=== PATIENT | male | born 1990 | race Caucasian/White ===

== ENCOUNTER 2016-09-25 09:20 | Day surgery (SDC) | payer OTHER ==
[2016-09-20 09:06] VITALS: BMI 21.7
[~2016-09-25 09:20] MED LIST: LACTATED RINGERS 1,000 ML IV SCH; LIDOCAINE 1% 20 ML VIAL (10MG/ML) FOR IV START INTRADERMA PRN
[2016-09-25 09:49] VITALS: RESP 16; TEMP 98
[2016-09-25] MEDS ORDERED: PROPOFOL 10 MG/ML 20 ML VIAL IV ONE (10:24)
--- NOTE | 2016-09-25 10:45 | P.PCN ---
Date of Procedure: 09/25/16 Procedure(s) Performed: Brief history: Patient is a pleasant 26-year-old white male, scheduled for an elective upper endoscopy as well as colonoscopy as a part of evaluation of abdominal pain, chronic diarrhea for the last [address] of the abdomen and pelvis showed thickening of the terminal ileum suspicious for Crohn's. Procedure performed: Esophagogastroduodenoscopy with biopsy Colonoscopy with biopsy Preoperative diagnosis: Abdominal pain, chronic diarrhea Abnormal CAT scan showing thickening of the terminal ileum, rule out Crohn's Anesthesia: [facility] [place] Procedure: After informed consent was obtained from the patient was brought into the endoscopy unit and IV conscious sedation was administered by anesthesia under continuous monitoring. Initially upper endoscopy was done. The Olympus GF 160 video endoscope was inserted inserted into the mouth and esophagus intubated without any difficulty and was gradually advanced into the stomach and duodenum and carefully examined. The bulb and second part of the duodenum appeared normal. The scope was then withdrawn into the stomach adequately insufflated with air and upon careful examination the antrum and mild gastritis and biopsies were done from this area. The body, cardia and fundus appeared normal. The scope was then withdrawn into the esophagus. Small hiatal hernia noted. The GE junction was located at 40 cm to the incisors. It appeared regular with no erythema erosions or ulcerations. Rest of the esophagus appeared normal. Patient tolerated the procedure well. At this time the patient continued to remain sedation. Initial digital rectal examination was normal. Olympus CF 160 video colonoscope was then inserted into the rectum and gradually advanced to the cecum without any difficulty. Careful examination was performed as the scope was gradually being withdrawn. The prep was excterminal ileum was intubated and 20 cm visualized which appeared normal. Biopsies were done from the terminal ileum.The cecum, ascending colon, transverse colon, descending colon appeared normal. In the sigmoid colon , there was patchy erythema identified and this was biopsied. Also biopsies were done from ascending and descending colon to rule out endoscopic/collagenous colitis. The rest of the sigmoid colon and rectum appeared normal. Retroflexion was performed in the rectum and no lesions were noted. Patient tolerated the procedure well. Impression: 1. Upper endoscopy revealed mild antral gastritis, small hiatal hernia and mild esophagitis 2. Colonoscopy revealed patchy areas of erythema noted in the sigmoid colon but the rest of the colon including the terminal ileum appeared normal. Recommendations: Findings of this examination were discussed with the patient as well as his family. He was advised to follow with the biopsy results and he'll be seen in office in 2 weeks.
[2016-09-25 11:22] VITALS: BP 111/69; PULSE 70
== END 2016-09-25 11:32 | disposition home or self-care (01) ==
LOC: ORWHC2ENDO 09:20
PROVIDERS: ATTEND Internal Medicine Gastroenterology
DX: K29.50 Unspecified chronic gastritis without bleeding (principal); K44.9 Diaphragmatic hernia without obstruction or gangrene; K20.9 Esophagitis, unspecified; Z79.899 Other long term (current) drug therapy
CPT/HCPCS: 88305; 88342; 45380; 43239; J2704; 99153

== ENCOUNTER 2016-12-05 11:47 | Emergency (ER) | payer OTHER ==
[2016-12-05] MEDS ORDERED: IPRATROPIUM-ALBUTEROL 3 ML NEB INHALATION STA ×2 (12:04→13:48)
[2016-12-05] MEDS ORDERED: predniSONE 20 MG TAB PO STA (12:04)
--- NOTE | 2016-12-05 12:05 | ED ---
General Adult HPI - General Chief complaint: Shortness of Breath Stated complaint: Diff breathing Time Seen by Provider: 12/05/16 12:00 Source: patient, RN notes reviewed Mode of arrival: ambulatory Limitations: no limitations - History of Present Illness Initial comments: 26-year-old male presenting for shortness of breath. Patient states that he did have a history of asthma as a child but has not had issues with this in several years. He states that he did smoke marijuana this morning and was feeling okay after this. However upon leaving to drive to work he began feeling shortness of breath. He feels like he can't catch his breath. He denies any history of cough or fevers over the past few days. He has not been on any recent antibiotics or steroids. - Related Data Previous Rx's Medication Instructions Recorded Albuterol Inhaler [Ventolin Hfa 2 puff INHALATION Q6HR PRN #1 12/05/16 Inhaler] inhaler predniSONE 40 mg PO DAILY #10 tab 12/05/16 Allergies Allergy/AdvReac Type Severity Reaction Status Date / Time shellfish derived [Shellfish] Allergy Nausea & Verified 12/05/16 12:19 Vomiting & SWELLING Review of Systems ROS Statement: Those systems with pertinent positive or pertinent negative responses have been documented in the HPI. ROS Other: All systems not noted in ROS Statement are negative. Past Medical History Past Medical History: Asthma, Skin Disorder, Sleep Apnea/CPAP/BIPAP Additional Past Medical History / Comment(s): no cpap used, abdominal pain and diarrhea, arthritis, psoriasis History of Any Multi-Drug Resistant Organisms: None Reported Additional Past Surgical History / Comment(s): oral surgery with anesthesia Past Anesthesia/Blood Transfusion Reactions: No Reported Reaction Past Psychological History: ADD/ADHD, Anxiety, Bipolar, Depression Smoking Status: Former smoker Past Alcohol Use History: Occasional Additional Past Alcohol Use History / Comment(s): quit smoking 10 yrs ago, smoked for 3 yrs Past Drug Use History: Marijuana - Past Family History Sister(s) Family Medical History: Cancer Mother Family Medical History: Deep Vein Thrombosis (DVT) General Exam - General Exam Comments Initial Comments: General: Awake and Alert. No acute distress. Does not appear acutely ill. Eyes: YONI, EOM intact. No nystagmus. No scleral icterus. HENT: Atraumatic, normocephalic. Mucous membranes moist. Trachea midline. Neck: The neck is supple, there is no tenderness or JVD. Cardiovascular: Regular rate and rhythm. No murmur, rub, or gallop is appreciated. Distal pulses intact. Respiratory: Lungs are clear to auscultation bilaterally. Diffuse wheezes, no rales, rhonchi. Mild tachypnea but no significant respiratory distress. Gastrointestinal: Soft, Nontender. No rebound or guarding. Non-distended. No masses or organomegaly noted. No CVA tenderness. Musculoskeletal: No tenderness. Normal ROM. No gross deformity. No strength deficits. Neurological: A&Ox3. CN II-XII grossly intact, There are no obvious motor or sensory deficits. Coordination appears grossly intact. Speech is normal. Skin: Skin is warm and dry and no rashes or lesions are noted. Psychiatric: Cooperative, appropriate mood & affect, normal judgment. Limitations: no limitations Course Vital Signs 12/05/16 12/05/16 12/05/16 11:57 12:47 13:03 Temperature 97.3 F L Pulse Rate 63 75 82 Respiratory 28 H 20 Rate Blood Pressure 133/88 140/68 O2 Sat by Pulse 99 99 Oximetry 12/05/16 12/05/16 12/05/16 13:09 14:01 14:10 Temperature Pulse Rate 82 82 82 Respiratory Rate Blood Pressure O2 Sat by Pulse Oximetry 12/05/16 14:27 Temperature 97.6 F Pulse Rate 74 Respiratory 18 Rate Blood Pressure 150/84 O2 Sat by Pulse 100 Oximetry EKG Findings - EKG Comments: EKG Findings:: EKG 12:58. Normal sinus rhythm. Rate 60. VT 170. QRS 88. QT/ QTC 368/391. Normal axis. No STEMI. Normal EKG. Medical Decision Making - Medical Decision Making 26-year-old male presents shortness breath. Did have history of asthma as a child. Continues to smoke marijuana. This is likely inciting factor of his shortness of breath today. No preceding symptoms the past few days. Well's score is 0, PERC negative. Low suspicion for PE at this time. Was given prednisone and breathing treatments with improvement of symptoms. Reevaluation with resolved wheezing. Discussed recommendation for smoking cessation. Rx provided for prednisone and albuterol. Discussed close follow-up with PCP. Discussed concerning signs symptoms for immediate return to the ED. Patient is agreeable with plan and discharge home. - EKG Data -: EKG Interpreted by Me EKG shows normal: sinus rhythm Rate: normal Disposition Clinical Impression: RAD (reactive airway disease), SOB (shortness of breath) Disposition: HOME SELF-CARE Condition: Stable Instructions: Bronchospasm (ED) Prescriptions: Albuterol Inhaler [Ventolin Hfa Inhaler] 2 puff INHALATION Q6HR PRN #1 inhaler PRN Reason: Shortness Of Breath predniSONE 40 mg PO DAILY #10 tab Referrals: Sher Palma MD [Primary Care Provider] - 1-2 days Time of Disposition: 14:15
[2016-12-05 14:28] VITALS: BP 150/84; PULSE 74; RESP 18; TEMP 97.6
== END 2016-12-05 14:28 | disposition home or self-care (01) ==
LOC: EC 11:47
DX: J45.909 Unspecified asthma, uncomplicated (principal); Z91.013 Allergy to seafood; Z87.891 Personal history of nicotine dependence
CPT/HCPCS: 94640; 93005; 99285; J7512

== ENCOUNTER → 2018-02-11 | Outpatient (CLI) | payer OTHER ==
--- NOTE | 2018-02-11 11:23 | MR ---
EXAMINATION TYPE: MR lumbar spine wo/w con DATE OF EXAM: 02/11/2018 COMPARISON: NONE HISTORY: Low back pain TECHNIQUE: Multiplanar, multisequence images of the lumbar spine were acquired utilizing 7.5 mL intravenous Gada vist gadolinium contrast. FINDINGS: Vertebral bodies maintain normal vertebral body height and alignment. Bone marrow signal is within normal limits. Conus medullaris is unremarkable terminating at L1-L2 intervertebral disc spac e. Disc desiccation is seen at L4-L5. There is no abnormal enhancement on the postcontrast enhanced i mages. Rudimentary disc is noted at S1-S2. L1-L2: Normal disc appearance without desiccation. No herniation, protrusion or disc bulging. No ca nal stenosis is present. Foramina are patent bilaterally. L2-L3: Normal disc appearance without desiccation. No herniation, protrusion or disc bulging. No ca nal stenosis is present. Foramina are patent bilaterally. L3-L4: Normal disc appearance without desiccation. No herniation, protrusion or disc bulging. No ca nal stenosis is present. Foramina are patent bilaterally. L4-L5: There is a small central disc herniation superimposed upon a broad-based disc bulge that is sl ightly right eccentric creating minimal right neural foraminal narrowing. No left neural foraminal na rrowing or spinal canal stenosis. L5-S1: Normal disc appearance without desiccation. No herniation, protrusion or disc bulging. No ca nal stenosis is present. Foramina are patent bilaterally. IMPRESSION: 1. Small central disc herniation at L4-L5 superimposed upon a broad-based disc bulge with disc desicc ation creating minimal right neural foraminal narrowing. No spinal canal stenosis. 2. Lumbar spine maintains normal alignment without vertebral body height loss or bone marrow edema. 3. No abnormal postcontrast enhancement.
== END | disposition home or self-care (01) ==
LOC: RADMRIMAIN 09:33
PROVIDERS: ATTEND Internal Medicine
DX: M99.73 Connective tissue and disc stenosis of intervertebral foramina of lumbar region (principal); M51.26 Other intervertebral disc displacement, lumbar region
CPT/HCPCS: 72158; A9581

== ENCOUNTER → 2024-02-05 | Outpatient (CLI) | payer MEDICARE ==
--- NOTE | 2024-02-06 12:27 | XR ---
EXAMINATION TYPE: XR hand complete RT DATE OF EXAM: 02/05/2024 COMPARISON: NONE HISTORY: 34-year-old male M79.641 PAIN IN RIGHT HAND TECHNIQUE: 3 views FINDINGS: Joint spaces are maintained. No acute fracture, subluxation, dislocation. No soft tissue ca lcifications or marginal erosions. IMPRESSION: No acute osseous abnormality seen.
== END | disposition home or self-care (01) ==
LOC: RADXRMAIN 13:58
PROVIDERS: ATTEND Family Medicine
DX: M79.641 Pain in right hand (principal)